=== PATIENT | female | born 1940 | race Caucasian/White ===

== ENCOUNTER → 2016-08-19 | Outpatient (CLI) | payer OTHER, MEDICARE ==
--- NOTE | 2016-08-19 14:13 | US ---
Ultrasound and Venous Duplex Doppler Study of Left Lower Extremity History: Swelling and redness since March, M79.662 Comparison: April 06, 2016 Technique: High frequency transducer was used for imaging and Doppler study of the veins of the lowe r extremity. Pulsed Doppler and color Doppler were utilized, along with various maneuvers to assess flow in the veins. Findings: There is superficial soft tissue edema. There is some stable benign lymph nodes in the left inguinal region. The deep veins of the lower extremity are normally compressible between the groin and the upper calf and have normal Doppler waveforms within them. No deep venous thrombosis is ident ified. No superficial phlebitis or Mondr[place] cyst is identified. Impression: No evidence of deep vein thrombosis in the left lower extremity. Considering the chronic ity of the patient's symptoms, perhaps pelvic CT might be considered to exclude a mass pressing on th e left pelvic venous drainage. Results called to Dr. Mitzi Morocho at 14:10. .
== END ==
LOC: BMCIMAGING 12:41
PROVIDERS: ATTEND Internal Medicine
DX: M79.89 Other specified soft tissue disorders (principal); L03.032 Cellulitis of left toe; L03.116 Cellulitis of left lower limb

== ENCOUNTER → 2018-11-28 | Outpatient (CLI) | payer OTHER, MEDICARE | LOC: EMCIMAGING 08:33 | PROVIDERS: ATTEND Nurse Practitioner Family | DX: M25.562 Pain in left knee (principal); M25.462 Effusion, left knee; M17.12 Unilateral primary osteoarthritis, left knee | CPT/HCPCS: 73562-PN ==